=== PATIENT | male | born 1955 | race Caucasian/White ===

== ENCOUNTER → 2017-04-23 | Outpatient (CLI) | payer BC, MEDICAID ==
--- NOTE | 2017-04-24 17:28 | RADIOLOGY REPORT (SQ) ---
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 RADIONUCLIDE AND DOSE: 10.7 mCi F18 FDG The route of agent administration: Intravenous FASTING BLOOD SUGAR: 70 mg/dl CONTRAST TYPE AND DOSE: No CT contrast given. TECHNIQUE: Blood glucose level was verified. Above dose of FDG was injected intravenously. 2-D seg mented attenuation correction images were obtained from the base of the skull to the midthighs. Nonc ontrast CT images were obtained for attenuation correction and fusion with emission images. CT image s were performed without oral or intravenous contrast and are not sensitive for parenchymal lesions. A series of overlapping emission PET images were obtained. Images reviewed and manipulated at [facility] work station by the radiologist. Images stored on PACS. LIMITATIONS: None. FINDINGS: HEAD AND NECK: No areas of abnormal metabolic activity in the soft tissues of the head and neck. CHEST: No areas of abnormal metabolic activity in the chest. ABDOMEN AND PELVIS: Hypermetabolic liver lesions are present worrisome for metastatic disease given h istory of colon cancer. These are as follows: Left lobe liver sub- diaphragmatic surface segment 7, 1.5 cm in diameter with SUV 3.8 Left lobe liver segment 4A, 2 cm in diameter with SUV of 6 Posterior right lobe liver segment 6, 2.9 cm in size with SUV of 7.4 PROXIMAL LOWER EXTREMITIES: No areas of abnormal metabolic activity in the soft tissues of the lower extremities. BONES: No abnormal metabolic activity in the visualized skeleton. ADDITIONAL CT FINDINGS: Post cholecystectomy. Surgical clips along the inferior right lobe liver. L eft permanent central line tip superior vena cava. Obstructive lung disease. Opacified right fronta l sinus from sinusitis OTHER: Liver background activity 1.4 SUV. Blood pool background activity 0.97 SUV IMPRESSION: Hypermetabolic metastatic liver lesions as above TECHNICAL DOCUMENTATION: JOB ID: [id number] [email or web address] All Rights Reserved
== END ==
LOC: RAD 19:23
PROVIDERS: ATTEND Surgery
DX: C18.9 Malignant neoplasm of colon, unspecified (principal); C78.7 Secondary malignant neoplasm of liver and intrahepatic bile duct
CPT/HCPCS: 78815; A9552